=== PATIENT | male | born 1990 | race Caucasian/White ===

== ENCOUNTER 2020-02-24 07:49 | Emergency (ER) | payer MEDICAID ==
[~2020-02-24] VITALS: Ht 195.6 cm; Wt 105.0 kg
[2020-02-24 07:50] VITALS: BP 146/68
[2020-02-24] MEDS ORDERED: PRED50TA PO (08:19)
--- NOTE | 2020-02-24 08:19 | PHYS DOC ---
Past Medical History Past Medical History: No Pertinent History Past Surgical History: No Surgical History Smoking Status: Never Smoker Alcohol Use: None General Adult EDM: Chief Complaint: SKIN PROBLEM HPI: HPI: 29-year-old male presents for evaluation of allergic reaction. Patient states over the weekend he was exposed to poison oak/sumac. States symptoms include redness and itch of bilateral arms neck and face. Patient states he also has a sensation of shortness of breath. Patient states he has had some leftover prednisone 10 mg has taken 2 tablets daily for the last 2 days. On exam patient is in no acute distress he is alert and oriented x4 speaks in full sentences and is handling his oral secretions. Review of Systems: Review of Systems: Constitutional: Denies fever or chills. [] Eyes: Denies change in visual acuity. [] HENT: Denies nasal congestion or sore throat. [] Tongue within normal limits Respiratory: Denies cough or shortness of breath. [] Cardiovascular: Denies chest pain or edema. [] GI: Denies abdominal pain, nausea, vomiting, bloody stools or diarrhea. [] : Denies dysuria. [] Musculoskeletal: Denies back pain or joint pain. [] Integument: Positive rash positive lip swelling Neurologic: Denies headache, focal weakness or sensory changes. [] Endocrine: Denies polyuria or polydipsia. [] Lymphatic: Denies swollen glands. [] Psychiatric: Denies depression or anxiety. [] Heart Score: Risk Factors: Risk Factors: DM, Current or recent (<one month) smoker, HTN, HLP, family history of CAD, obesity. Risk Scores: Score 0 - 3: 2.5% MACE over next 6 weeks - Discharge Home Score 4 - 6: 20.3% MACE over next 6 weeks - Admit for Clinical Observation Score 7 - 10: 72.7% MACE over next 6 weeks - Early Invasive Strategies Allergies: Allergies: Allergies Coded Allergies Type Severity Reaction Last Updated Verified No Known Drug Allergies 02/24/20 No Physical Exam: PE: Constitutional: Well developed, well nourished, no acute distress, non-toxic appearance. [] HENT: Normocephalic, atraumatic, bilateral external ears normal, oropharynx moist, no oral exudates, nose normal. [Positive lip swelling tongue within normal limits] Eyes: PERRLA, EOMI, conjunctiva normal, no discharge. [] Neck: Normal range of motion, no tenderness, supple, no stridor. [] Cardiovascular:Heart rate regular rhythm, no murmur [] Lungs & Thorax: Bilateral breath sounds clear to auscultation [] Abdomen: Bowel sounds normal, soft, no tenderness, no masses, no pulsatile masses. [] Skin: Warm, dry, no erythema, positive rash bilateral arms neck facial Back: No tenderness, no CVA tenderness. [] Extremities: No tenderness, no cyanosis, no clubbing, ROM intact, no edema. [] Neurologic: Alert and oriented X 3, normal motor function, normal sensory function, no focal deficits noted. [] Psychologic: Affect normal, judgement normal, mood normal. [] Current Patient Data: Vital Signs: Vital Signs Date Time Temp Pulse Resp B/P (MAP) Pulse Ox O2 Delivery O2 Flow Rate FiO2 02/24/20 07:50 98.3 69 18 146/68 (94) 96 Room Air 98.3 EKG: EKG: [] Radiology/Procedures: Radiology/Procedures: [] Course & Med Decision Making: Course & Med Decision Making Pertinent Labs and Imaging studies reviewed. (See chart for details) [] Patient was discharged home on prednisone. Patient also advised to take [id number] Benadryl and Pepcid. In the ER patient was treated with Solu-Medrol 125mg Dragon Disclaimer: Essenceon Disclaimer: This electronic medical record was generated, in whole or in part, using a voice recognition dictation system. Departure Departure Impression: Primary Impression: Allergic reaction Qualified Codes: T78.40XA - Allergy, unspecified, initial encounter Additional Impression: Poison gabby Disposition: 01 HOME, SELF-CARE Condition: STABLE Patient Instructions: Poison Gabby Scripts Prednisone (PREDNISONE) 50 Mg Tablet 1 TAB PO DAILY, #5 TAB Prov: TRIPP BARAJAS DO 02/24/20 TRIPP BARAJAS DO February 24, 2020 08:19
[2020-02-24] MEDS ORDERED: methylPREDNISolone SOD SUCC PF 125 MG/2 ML VIAL. IM ONE (08:30)
== END 2020-02-24 08:30 | disposition home or self-care (01) ==
LOC: ER 07:49
DX: L23.7 Allergic contact dermatitis due to plants, except food (principal); R06.02 Shortness of breath
CPT/HCPCS: 96372; 99283; J2930

== ENCOUNTER 2020-07-14 07:57 | Emergency (ER) | payer MEDICAID ==
[~2020-07-14] VITALS: Ht 195.6 cm; Wt 104.5 kg
[~2020-07-14 07:57] MED LIST: PRED50TA PO
[2020-07-14 08:08] VITALS: BP 149/72
[2020-07-14] MEDS ORDERED: predniSONE 20 MG TABLET PO ONE (08:30)
[2020-07-14] MEDS ORDERED: KETOROLAC 60 MG/2 ML VIAL. IM ONE (08:30)
[2020-07-14] MEDS ORDERED: ORPHENADRINE CITRATE 60 MG/2 ML VIAL. IM ONE (08:30)
--- NOTE | 2020-07-14 08:30 | PHYS DOC ---
Past Medical History Past Medical History: No Pertinent History Past Surgical History: No Surgical History Smoking Status: Never Smoker Alcohol Use: None General Adult EDM: Chief Complaint: LOWER BACK PAIN OR INJURY HPI: HPI: Patient is a 30 year old male who presented to ER today for evaluation of low back pain that radiated to his right buttock and right knee area started a week ago. Patient said it happened at work when he was bending over to hop picker a heavy wooden brush. He exacerbated the pain after he was playing football with his nephew when he was throwing the football , the twisting motion hurts his back. Patient denies any numbness or weakness in his lower extremity, denies any bowel or bladder incontinence. Review of Systems: Review of Systems: Constitutional: Denies fever or chills. [] Eyes: Denies change in visual acuity. [] HENT: Denies nasal congestion or sore throat. [] Respiratory: Denies cough or shortness of breath. [] Cardiovascular: Denies chest pain or edema. [] GI: Denies abdominal pain, nausea, vomiting, bloody stools or diarrhea. [] : Denies dysuria. [] Musculoskeletal: Positive for low back pain. Integument: Denies rash. [] Neurologic: Denies headache, focal weakness or sensory changes. [] Endocrine: Denies polyuria or polydipsia. [] Lymphatic: Denies swollen glands. [] Psychiatric: Denies depression or anxiety. [] Heart Score: Risk Factors: Risk Factors: DM, Current or recent (<one month) smoker, HTN, HLP, family history of CAD, obesity. Risk Scores: Score 0 - 3: 2.5% MACE over next 6 weeks - Discharge Home Score 4 - 6: 20.3% MACE over next 6 weeks - Admit for Clinical Observation Score 7 - 10: 72.7% MACE over next 6 weeks - Early Invasive Strategies Current Medications: Current Medications Medications (Trade) Dose Ordered Sig/[facility] Start Time Stop Time Status Last Admin Dose Admin Ketorolac Tromethamine (Toradol Im) 60 mg 1X ONCE 07/14/20 08:30 07/14/20 08:31 UNV Orphenadrine Citrate (Norflex) 60 mg 1X ONCE 07/14/20 08:30 07/14/20 08:31 UNV Prednisone (Prednisone) 60 mg 1X ONCE 07/14/20 08:30 07/14/20 08:31 UNV Allergies: Allergies: Allergies Coded Allergies Type Severity Reaction Last Updated Verified No Known Drug Allergies 02/24/20 No Physical Exam: PE: Constitutional: Well developed, well nourished, no acute distress, non-toxic appearance. [] HENT: Normocephalic, atraumatic, bilateral external ears normal, oropharynx moist, no oral exudates, nose normal. [] Eyes: PERRLA, EOMI, conjunctiva normal, no discharge. [] Neck: Normal range of motion, no tenderness, supple, no stridor. [] Cardiovascular:Heart rate regular rhythm, no murmur [] Lungs & Thorax: Bilateral breath sounds clear to auscultation [] Abdomen: Bowel sounds normal, soft, no tenderness, no masses, no pulsatile masses. [] Skin: Warm, dry, no erythema, no rash. [] Back: No tenderness, no CVA tenderness. [] Extremities: No tenderness, no cyanosis, no clubbing, ROM intact, no edema. [] Neurologic: Alert and oriented X 3, normal motor function, normal sensory function, no focal deficits noted. [] Psychologic: Affect normal, judgement normal, mood normal. [] Current Patient Data: Vital Signs: Vital Signs Date Time Temp Pulse Resp B/P (MAP) Pulse Ox O2 Delivery O2 Flow Rate FiO2 07/14/20 08:08 98.6 78 17 149/72 (97) 97 Room Air 98.6 EKG: EKG: [] Radiology/Procedures: Radiology/Procedures: [][facility] [address] [place], [place] [id number] IMAGING REPORT Signed PATIENT: TREVON MORALES ACCOUNT: [id number] : 1990 LOCATION: ER AGE: 30 SEX: M EXAM STATUS: REG ER ORD. PHYSICIAN: JULIO HUNT DO REASON: lower back pain PROCEDURE: LUMBAR SPINE 2-3V Study: CR LUMBAR SPINE 2-3V Indication: Lower back pain. Comparison: None. Findings: Bilateral pars defects at L5 with resultant grade 1 anterolisthesis of L5 on S1 but also a 5 mm. Mild disc space narrowing at L5-S1. Disc space height is otherwise maintained. Trace dextrocurvature centered at approximately L1-L2. No acute osseous abnormality. Impression: Bilateral pars defects at L5 with resultant grade 1 anterolisthesis of L5 on S1 and mild disc space narrowing at this level. Electronically signed by: DONIS ELIZALDE MD (07/14/2020 8:54 AM) [id number] DICTATED and SIGNED BY: DONIS ELIZALDE MD DATE: 07/14/20 0854 Course & Med Decision Making: Course & Med Decision Making Pertinent Labs and Imaging studies reviewed. (See chart for details) Patient is a 30-year-old male who was evaluated in ER due to low back pain consistent with sciatica. X-ray of his lumbar spine show anterolisthesis at L5 over S1, patient had no neurological deficits at this time, he will need to follow-up with his family doctor for outpatient evaluation with MRI of his lumbar spine. Patient will be discharged home with anti-inflammatory medication, muscle relaxer and steroids. Patient is amenable to plan of care. Dragon Disclaimer: Dragbe Disclaimer: This electronic medical record was generated, in whole or in part, using a voice recognition dictation system. Departure Departure Impression: Primary Impression: Acute back pain with sciatica Additional Impression: Anterolisthesis Disposition: 01 HOME, SELF-CARE Condition: IMPROVED Referrals: NO PCP (PCP) please follow up with your doctor for outpatient evaluation with MRI OF YOUR LUMBAR SPINE THIS WEEK. Patient Instructions: Sciatica Additional Instructions: Thank you for visiting our Emergency Department. We appreciate you trusting us with your care. If any additional problems come up don't hesitate to return to visit us. Please follow up with your primary care provider so they can plan july tional care if needed and know about the problem that you had. If symptoms worsen come back to the Emergency Department. Any concerning symptoms that start such as chest pain, shortness of air, weakness or numbness on one side of the body, running high fevers or any other concerning symptoms return to the ER. [facility] [address] [place] [address] [facility] [address] [place] [address] [address] [facility] [address] [place] [address] [facility] [address] [place] [address] [facility] [address] [place] [address] [address] [address] [place] [address] [facility] [address] [place] [address] [facility] [address] [place] [address] [facility] [address] [place] [address] Scripts Cyclobenzaprine Hcl (CYCLOBENZAPRINE HCL) 10 Mg Tablet 1 TAB PO TID PRN for MUSCLE SPASMS, #15 TAB Prov: JULIO HUNT DO 07/14/20 Naproxen Sodium (ANAPROX DS) 550 Mg Tablet 1 TAB PO BID PRN for PAIN for 15 Days, #30 TAB 0 Refills Prov: JULIO HUNT DO 07/14/20 Prednisone (PREDNISONE) 20 Mg Tablet 2 TAB PO DAILY for 5 Days, #10 TAB Prov: JULIO HUNT DO 07/14/20 Justicifation of Admission Dx: Justifications for Admission: Justification of Admission Dx: N/A JULIO HUNT DO Jul 14, 2020 08:30
--- NOTE | 2020-07-14 08:57 | RAD ---
Study: CR LUMBAR SPINE 2-3V Indication: Lower back pain. Comparison: None. Findings: Bilateral pars defects at L5 with resultant grade 1 anterolisthesis of L5 on S1 but also a 5 mm. Mild disc space narrowing at L5-S1. Disc space height is otherwise maintained. Trace dextrocurvature centered at approximately L1-L2. No acute osseous abnormality. Impression: Bilateral pars defects at L5 with resultant grade 1 anterolisthesis of L5 on S1 and mild disc space narrowing at this level. Electronically signed by: DONIS ELIZALDE MD (07/14/2020 8:54 AM) [id number]
[2020-07-14] MEDS ORDERED: PRED20TA PO (09:05)
[2020-07-14] MEDS ORDERED: CYCL10TA2 PO (09:05)
[2020-07-14] MEDS ORDERED: NAPR-682 PO (09:05)
== END 2020-07-14 09:30 | disposition home or self-care (01) ==
LOC: ER 07:57
DX: M54.41 Lumbago with sciatica, right side (principal); M25.561 Pain in right knee; X50.1XXA Overexertion from prolonged static or awkward postures, initial encounter; Y93.61 Activity, american tackle football; Y92.89 Other specified places as the place of occurrence of the external cause; Y99.8 Other external cause status
CPT/HCPCS: 72100; 96372; 99284; J1885; J2360; J7512

== ENCOUNTER 2021-06-30 10:07 | Emergency (ER) | payer MEDICAID ==
[~2021-06-30] VITALS: Ht 198.1 cm; Wt 113.8 kg
[~2021-06-30 10:07] MED LIST changes: +CYCL10TA2 PO; +NAPR-682 PO; +PRED20TA PO
--- NOTE | 2021-06-30 11:33 | RAD ---
EXAM: Head CT without contrast. HISTORY: Blunt trauma. TECHNIQUE: Computed tomographic images of the head were obtained without contrast. *One or more of the following individualized dose reduction techniques were utilized for this examina tion: 1. Automated exposure control. 2. Adjustment of the mA and/or kV according to patient size. 3. Use of iterative reconstruction technique. COMPARISON: None. FINDINGS: There is no acute or subacute extra-axial or intraparenchymal hemorrhage. There is no mass effect or midline shift. There is no hydrocephalus. The tanner-white matter differentiation pattern is intact. There is moderate right maxillary and mild r ight ethmoid and sphenoid sinus mucosal thickening. The mastoid air cells are clear. No calvarial fra cture is seen. IMPRESSION: 1. No acute intracranial finding. 2. Right paranasal sinus disease. Electronically signed by: Ana Dickinson MD (06/30/2021 11:30 AM) [id number]
--- NOTE | 2021-06-30 11:50 | PHYS DOC ---
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 Patient states he was walking to the park, it broke loose and hit him on the forehead. Patient denies any loss of consciousness but reports he felt dazed and saw "stars". He states this morning he woke up and he could not think straight. Review of Systems: Review of Systems: Constitutional: Denies fever or chills. [] Eyes: Denies change in visual acuity. [] HENT: Denies nasal congestion or sore throat. [] Respiratory: Denies cough or shortness of breath. [] Cardiovascular: Denies chest pain or edema. [] GI: Denies abdominal pain, nausea, vomiting, bloody stools or diarrhea. [] : Denies dysuria. [] Musculoskeletal: Denies back pain or joint pain. [] Integument: Denies rash. [] Neurologic: Reports head injury, denies focal weakness or sensory changes. [] ] Psychiatric: Denies depression or anxiety. [] Heart Score: C/O Chest Pain: N/A Risk Factors: Risk Factors: DM, Current or recent (<one month) smoker, HTN, HLP, family history of CAD, obesity. Risk Scores: Score 0 - 3: 2.5% MACE over next 6 weeks - Discharge Home Score 4 - 6: 20.3% MACE over next 6 weeks - Admit for Clinical Observation Score 7 - 10: 72.7% MACE over next 6 weeks - Early Invasive Strategies Allergies: Allergies: Allergies Coded Allergies Type Severity Reaction Last Updated Verified No Known Drug Allergies 06/30/21 No Physical Exam: PE: Constitutional: Well developed, well nourished, no acute distress, non-toxic appearance. [] HENT: Normocephalic, atraumatic, bilateral external ears normal, oropharynx moist, no oral exudates, nose normal. [] Eyes: PERRLA, EOMI, conjunctiva normal, no discharge. [] Neck: Normal range of motion, no tenderness, supple, no stridor. [] Cardiovascular:Heart rate regular rhythm, no murmur [] Lungs & Thorax: Bilateral breath sounds clear to auscultation [] Abdomen: Bowel sounds normal, soft, no tenderness, no masses, no pulsatile masses. [] Skin: Warm, dry, no erythema, no rash. [] Back: No tenderness, no CVA tenderness. [] Extremities: No tenderness, no cyanosis, no clubbing, ROM intact, no edema. [] Neurologic: Forehead with a small contusion. Cranial nerves II through XII intact alert and oriented X 3, normal motor function, normal sensory function, no focal deficits noted. [] Psychologic: Affect normal, judgement normal, mood normal. [] Current Patient Data: Vital Signs: Vital Signs Date Time Temp Pulse Resp B/P (MAP) Pulse Ox O2 Delivery O2 Flow Rate FiO2 06/30/21 10:16 98.8 65 18 118/55 (76) 97 Room Air 98.8 EKG: EKG: [] Radiology/Procedures: Radiology/Procedures: []PROCEDURE: CT HEAD WO CONTRAST EXAM: Head CT without contrast. HISTORY: Blunt trauma. TECHNIQUE: Computed tomographic images of the head were obtained without contrast. *One or more of the following individualized dose reduction techniques were utilized for this examination: 1. Automated exposure control. 2. Adjustment of the mA and/or kV according to patient size. 3. Use of iterative reconstruction technique. COMPARISON: None. FINDINGS: There is no acute or subacute extra-axial or intraparenchymal h emorrhage. There is no mass effect or midline shift. There is no hydrocephalus. The tanner-white matter differentiation pattern is intact. There is moderate right maxillary and mild right ethmoid and sphenoid sinus mucosal thickening. The mastoid air cells are clear. No calvarial fracture is seen. IMPRESSION: 1. No acute intracranial finding. 2. Right paranasal sinus disease. Electronically signed by: Ana Zacarias MD (06/30/2021 11:30 AM) [id number] DICTATED and SIGNED BY: ANA ZACARIAS MD DATE: 06/30/21 [id number] Course & Med Decision Making: Course & Med Decision Making Pertinent Labs and Imaging studies reviewed. (See chart for details) This is a 31-year-old male patient presented to the ED today with a head injury that occurred yesterday. He accidentally hit himself with a pipe on the forehead. No loss of consciousness. Complaining of not thinking straight this morning. CT of the head was negative for any acute findings, noted for right frontal sinus disease, patient denies any nasal congestion Discharge to home on provided head injury and concussion symptoms education and return precautions. Follow-up with PCP in a week Josue Disclaimer: Josue Disclaimer: This electronic medical record was generated, in whole or in part, using a voice recognition dictation system. Departure Departure Impression: Primary Impression: Head injury, closed, with concussion Qualified Codes: S06.0X0A - Concussion without loss of consciousness, initial encounter Disposition: HOME / SELF CARE / HOMELESS Condition: STABLE Referrals: NO PCP (PCP) Follow-up in 1 to 2 weeks Patient Instructions: Head Injury, Adult, Nrur-[id number] Additional Instructions: You were evaluated in the emergency room for head injury. Your CT of the head is negative for any acute findings. Please take Tylenol as needed for pain. Consider cutting the amount of electronic/screen time for the next 7 days. Try and stay in a dark cool room when you are resting. Please return to the e mergency room if your symptoms worsen or you have new symptoms including but not limited to uncontrolled vomiting, excessive sleepiness, confusion, or any other new symptoms. ERNESTINA KEVIN APRN Jun 30, 2021 11:50
[2021-06-30 11:53] VITALS: BP 109/62
== END 2021-06-30 11:55 | disposition home or self-care (01) ==
LOC: ER 10:07
DX: S06.0X0A Concussion without loss of consciousness, initial encounter (principal); S00.83XA Contusion of other part of head, initial encounter; W20.8XXA Other cause of strike by thrown, projected or falling object, initial encounter; Y93.01 Activity, walking, marching and hiking; Y92.89 Other specified places as the place of occurrence of the external cause; Y99.8 Other external cause status
CPT/HCPCS: 70450; 99284-25